=== PATIENT | female | born 1950 | race Caucasian/White ===

== ENCOUNTER 2017-12-06 11:11 | Emergency (ER) | payer SELFPAY ==
[2017-12-06 11:33] VITALS: TEMP 98; O2SAT 98
[2017-12-06] MEDS ORDERED: Albuterol 0.083% Inhal Sol (2.5 mg/3 mL) UD INH STA (12:08)
[2017-12-06] MEDS ORDERED: Albuterol 0.083% Inhal Sol (2.5 mg/3 mL) UD ONE (12:15)
--- NOTE | 2017-12-06 12:45 | RAD ---
Date of service: 12/06/2017 PROCEDURE: CHEST RADIOGRAPH, 1 VIEW HISTORY: SOB COMPARISON: None available FINDINGS: LUNGS: Clear. PLEURA: No pneumothorax or pleural fluid seen. CARDIOVASCULAR: Normal. OSSEOUS STRUCTURES: No significant abnormalities. VISUALIZED UPPER ABDOMEN: Normal. OTHER FINDINGS: None. IMPRESSION: No active disease.
[2017-12-06 12:54] LABS: BASO # 0.1 K/uL (0.0-0.2); BASO % 0.8 % (0.0-2.0); EOS # 0.3 K/uL (0.0-0.7); EOS % 4.2 % (0.0-4.0); HEMOGLOBIN 13.1 g/dL (11.0-16.0); LYMPH # 2.9 K/uL (1.0-4.3); LYMPH % 35.9 % (20.0-40.0); MEAN CELL VOLUME 86.5 fL (81.0-99.0); MEAN CORPUSCULAR HEMOGLOBIN 30.5 pg (27.0-31.0); MEAN CORPUSCULAR HGB CONC 35.2 g/dL (33.0-37.0); MEAN PLATELET VOLUME 8.5 fL (7.2-11.7); MONO # 0.6 K/uL (0.0-0.8); MONO % 6.9 % (0.0-10.0); NEUT # 4.2 K/uL (1.8-7.0); NEUT % 52.2 % (50.0-75.0); NRBC % 0.1 % (0.0-2.0); RBC 4.28 Mil/uL (3.80-5.20); RED CELL DISTRIBUTION WIDTH 12.9 % (11.5-14.5)
[2017-12-06 13:05] LABS: ALB/GLOB RATIO 1.4 (1.0-2.1); ALBUMIN 4.2 g/dL (3.5-5.0); ALT/SGPT 19 U/L (9-52); AST/SGOT 23 U/L (14-36); BLOOD UREA NITROGEN 11 mg/dL (7-17); CALCIUM 9.5 mg/dl (8.6-10.4); GFR NON-AFRICAN AMERICAN > 60
--- NOTE | 2017-12-06 13:14 | C.PDOC ---
History Of Present Illness 67 y/o female, with no significant PMHx, presents to ED c/o chest pain described as pressure, cough, and shortness of breath for the past week. Denies nausea, vomiting, headache, or any other associated symptoms at this time. Time Seen by Provider: 12/06/17 11:47 Chief Complaint (Nursing): Shortness Of Breath History Per: Patient History/Exam Limitations: no limitations Past Medical History Reviewed: Historical Data, Nursing Documentation, Vital Signs Vital Signs: Last Vital Signs Temp 98.0 F 12/06/17 11:29 Pulse 88 12/06/17 14:25 Resp 20 12/06/17 14:25 BP 140/83 12/06/17 14:25 Pulse Ox 98 12/06/17 14:34 - Medical History PMH: Asthma Family History: States: Unknown Family Hx - Social History Hx Alcohol Use: No Hx Substance Use: No - Immunization History Hx Tetanus Toxoid Vaccination: No Hx Influenza Vaccination: Yes Hx Pneumococcal Vaccination: No Review Of Systems Except As Marked, All Systems Reviewed And Found Negative. Constitutional: Negative for: Fever, Chills Cardiovascular: Positive for: Chest Pain Respiratory: Positive for: Cough, Shortness of Breath Physical Exam - Physical Exam Appears: Non-toxic, No Acute Distress Skin: Normal Color, Warm, Dry Head: Atraumatic, Normacephalic Eye(s): bilateral: Normal Inspection Oral Mucosa: Moist, No Drooling Throat: Normal, No Erythema, No Exudate, No Other (no signs of airway obstruction) Neck: Supple Cardiovascular: Rhythm Regular Respiratory: No Rales, No Rhonchi, Wheezing (faint expiratory wheezing with stridous sounds) Gastrointestinal/Abdominal: Soft, No Tenderness Extremity: Normal ROM, No Pedal Edema Neurological/Psych: Oriented x3, Normal Speech ED Course And Treatment - Laboratory Results Result Diagrams: 12/06/17 12:40 12/06/17 12:40 ECG: Interpreted By Me, Viewed By Me ECG Interpretation: No Acute Changes Interpretation Of ECG: Normal intervals, normal axis. No ST/T wave changes. Rate From EC O2 Sat by Pulse Oximetry: 98 Pulse Ox Interpretation: Normal Medical Decision Making Medical Decision Making: Plan: Blood work CXR EKG Albuterol treatment Aspirin Assessment: chest pain, shortness of breath On re-eval, pt complains of left knee pain, denies any injury or change in sensation. On exam, there is no swelling, tenderness, or erythema to left knee. No calf tenderness, or gross deformity. Normal motor and sensation. Lidoderm patch prescribed. Against Medical Advice (AMA): This patient is choosing to leave against medical advice. I have personally explained to the pt that choosing to do so may result in permanent bodily harm or . I have discussed at great length that without further evaluation and monitoring there may be unforeseen circumstances and/or deterioration causing permanent bodily harm or as a result of their choice. The pt verbalized these risks back to the physician in laymans terms. The pt is alert, oriented, and shows the mental capacity to make clear decisions regarding the pts health care at this time. The pt continues to wish to leave against medical advice. Disposition - Disposition Disposition: HOME/ ROUTINE Disposition Time: 15:30 Condition: GOOD Prescriptions: Albuterol Sulfate [Proventil Hfa] 2 puff IH QID #1 hfa.aer.ad Lidocaine 5% [Lidoderm] 1 ea TD DAILY PRN #10 patch PRN Reason: Pain, Moderate (4-7) Forms: HowDo (E[place]ian) - Clinical Impression Clinical Impression: Chest pain - Scribe Statement The provider has reviewed the documentation as recorded by the Scribe KP All medical record entries made by the Scribe were at my direction and personally dictated by me. I have reviewed the chart and agree that the record accurately reflects my personal performance of the history, physical exam, medical decision making, and the department course for this patient. I have also personally directed, reviewed, and agree with the discharge instructions and disposition.
[2017-12-06 13:15] LABS: B-TYPE NATRIURETIC PEPTIDE 57.4 pg/mL (0-900)
[2017-12-06 14:27] VITALS: BP 140/83; PULSE 88; RESP 20
== END 2017-12-06 14:25 | disposition home or self-care (01) ==
LOC: C.ER 11:11
DX: R07.9 Chest pain, unspecified (principal)